=== PATIENT | male | born 1950 | race Caucasian/White ===

== ENCOUNTER 2020-07-31 22:42 | Emergency (ER) | payer BC ==
[2020-07-31 22:47] VITALS: BP 184/104; PULSE 80; RESP 16; TEMP 98.6
--- NOTE | 2020-07-31 23:08 | ED ---
ENT HPI - General Chief complaint: ENT Stated complaint: ENT Time Seen by Provider: 07/31/20 22:49 Source: patient, family, RN notes reviewed, old records reviewed Mode of arrival: ambulatory Limitations: no limitations - History of Present Illness Initial comments: This is a 69-year-old male DF for evaluation. Patient complains of bilateral ear pain and drainage. Also using Q-tips and having blood clot of left ear. Patient has otherwise no significant complaints. Has history of chronic ear wax and drainage. He does use Q-tips daily. No other complaints no change in hearing MD complaint: ear pain (Bilateral ear pain and fullness) -: year(s) Location: R ear, L ear Severity: mild Severity scale (1-10): 2 Consistency: constant Improves with: none Worsens with: none Context- Ear: direct trauma (Q-tip) Associated Symptoms: discharge from ear - Related Data Allergies Allergy/AdvReac Type Severity Reaction Status Date / Time No Known Allergies Allergy Verified 07/31/20 22:47 Review of Systems ROS Statement: Those systems with pertinent positive or pertinent negative responses have been documented in the HPI. ROS Other: All systems not noted in ROS Statement are negative. Past Medical History Past Medical History: No Reported History History of Any Multi-Drug Resistant Organisms: None Reported Past Surgical History: No Surgical Hx Reported Past Psychological History: No Psychological Hx Reported Smoking Status: Former smoker Past Alcohol Use History: None Reported Past Drug Use History: None Reported General Exam - General Exam Comments Initial Comments: Bilateral cerumen impaction Limitations: no limitations General appearance: alert, in no apparent distress Head exam: Present: atraumatic, normocephalic, normal inspection Eye exam: Present: normal appearance, PERRL, EOMI. Absent: scleral icterus, co njunctival injection, periorbital swelling ENT exam: Present: normal exam, mucous membranes moist Neck exam: Present: normal inspection. Absent: tenderness, meningismus, lymphadenopathy Respiratory exam: Present: normal lung sounds bilaterally. Absent: respiratory distress, wheezes, rales, rhonchi, stridor Cardiovascular Exam: Present: regular rate, normal rhythm, normal heart sounds. Absent: systolic murmur, diastolic murmur, rubs, gallop, clicks GI/Abdominal exam: Present: soft, normal bowel sounds. Absent: distended, tenderness, guarding, rebound, rigid Extremities exam: Present: normal inspection, full ROM, normal capillary refill. Absent: tenderness, pedal edema, joint swelling, calf tenderness Back exam: Present: normal inspection Neurological exam: Present: alert, oriented X3, CN II-XII intact Psychiatric exam: Present: normal affect, normal mood Skin exam: Present: warm, dry, intact, normal color. Absent: rash Course Vital Signs 07/31/20 22:43 Temperature 98.6 F Pulse Rate 80 Respiratory 16 Rate Blood Pressure 184/104 O2 Sat by Pulse 98 Oximetry - Reevaluation(s) Reevaluation #1: 08/01/20 00:25 Medical record is reviewed Reevaluation #2: 08/01/20 00:25 Patient has complete relief after ears are flushed Medical Decision Making - Medical Decision Making 69 male to the ER for evaluation bilateral cerumen impaction resolved and pa tient can be discharged Disposition Clinical Impression: Impacted cerumen of both ears Disposition: HOME SELF-CARE Condition: Good Instructions (If sedation given, give patient instructions): Cerumen Impaction (ED), Earache (ED) Is patient prescribed a controlled substance at d/c from ED?: No Referrals: Saniya Ruth MD [Primary Care Provider] - 1-2 days
[2020-07-31] MEDS ORDERED: AMOXIC-POT CLAV 875MG STARTER PACK 2 TAB BTL PO STA (23:28)
[2020-07-31] MEDS ORDERED: CARBAMIDE PEROXIDE 6.5% DROPS 15 ML BTL BOTH EARS STA (23:28)
[2020-07-31] MEDS ORDERED: AMOXIC-POT CLAV 875-125MG 1 EACH TAB PO STA (23:28)
== END 2020-08-01 00:23 | disposition home or self-care (01) ==
LOC: EC 22:42
DX: H61.23 Impacted cerumen, bilateral (principal); Z87.891 Personal history of nicotine dependence
CPT/HCPCS: 99283

== ENCOUNTER → 2022-08-01 | Outpatient (CLI) | payer MEDICARE ==
--- NOTE | 2022-08-01 16:46 | XR ---
EXAMINATION TYPE: XR ankle complete LT DATE OF EXAM: 08/01/2022 COMPARISON: None HISTORY: Gout TECHNIQUE: 3 view left ankle FINDINGS: Ankle mortise is intact. Soft tissues are normal. Calcaneal Achilles tendon heel spurs pres ent. No acute fractures are evident. Joint spaces otherwise are unremarkable. Follow up exams can be perfo rmed 710 days from acute trauma for continued pain. IMPRESSION: 1. No acute osseous abnormality left ankle. 2. Achilles tendon calcaneal heel spur
== END | disposition home or self-care (01) ==
LOC: RADXRYALE 16:27
PROVIDERS: ATTEND Internal Medicine
DX: M10.072 Idiopathic gout, left ankle and foot (principal); M77.32 Calcaneal spur, left foot

== ENCOUNTER 2022-11-20 18:17 | Inpatient (IN) | payer MEDICARE ==
[2022-11-20 19:35] LABS: Basophils % (A) 0 %; Eosinophils # (A) 0.3 k/uL (0-0.7); Eosinophils % (A) 3 %; HCT 47.3 % (39.0-53.0); HGB 15.8 gm/dL (13.0-17.5); Lymphocytes % (A) 12 %; MCH 31.1 pg (25.0-35.0); MCHC 33.3 g/dL (31.0-37.0); MCV 93.4 fL (80.0-100.0); Mean Platelet Volume 8.3; Monocytes # (A) 0.6 k/uL (0-1.0); Monocytes % (A) 7 %; Neutrophils # (A) 6.5 k/uL (1.3-7.7); Neutrophils % (A) 76 %; Platelet Count 206 k/uL (150-450); RBC 5.06 m/uL (4.30-5.90); RDW 13.2 % (11.5-15.5); WBC 8.6 k/uL (3.8-10.6)
[2022-11-20 19:44] LABS: INR 0.9 (<1.2); Partial Thromboplastin Time 23.5 sec (22.0-30.0); Prothrombin Time 9.7 sec (9.0-12.0)
[2022-11-20 19:54] LABS: Albumin 4.1 g/dL (3.5-5.0); Calcium 8.9 mg/dL (8.4-10.2); Potassium 4.8 mmol/L (3.5-5.1); Total Bilirubin 0.4 mg/dL (0.2-1.3); Total Protein 7.3 g/dL (6.3-8.2)
--- NOTE | 2022-11-20 20:32 | ED ---
SOB HPI - General Chief Complaint: Shortness of Breath Stated Complaint: SOB Source: patient, RN notes reviewed, old records reviewed Mode of arrival: wheelchair Limitations: no limitations - History of Present Illness Initial Comments: This is a 72-year-old male DF for evaluation of medical history takes no medications. Patient has been feeling fine until he went to his room a little bit prior to arrival today. Patient is no shortness of breath [place] he back is without he cannot catch his breath was taking some deep breath without help. No sweatiness no chest pain no current symptoms. Again patient has no medical history aside from remote history of smoking which he stopped 30 years ago no high blood pressure or cholesterol no diabetes, brother does have history of he art disease but is a chronic smoker. Again at this time patient states he feels well mild runny nose mild cough which is fell he can catch his breath prior to arrival MD Complaint: shortness of breath, cough, anxiety -: minutes(s) Severity: moderate Severity scale (1-10): 5 Consistency: intermittent Improves With: nothing Worsens With: other (0) Known History Of: other (0) Context: recent URI Associated Symptoms: denies other symptoms Treatments Prior to Arrival: none - Related Data Home Medications Medication Instructions Recorded Confirmed No Known Home Medications 11/20/22 11/20/22 Allergies Allergy/AdvReac Type Severity Reaction Status Date / Time No Known Allergies Allergy Verified 11/20/22 21:07 Review of Systems ROS Statement: Those systems with pertinent positive or pertinent negative responses have been documented in the HPI. ROS Other: All systems not noted in ROS Statement are negative. Past Medical History Past Medical History: No Reported History History of Any Multi-Drug Resistant Organisms: None Reported Past Surgical History: No Surgical Hx Reported Past Psychological History: No Psychological Hx Reported Smoking Status: Former smoker Past Alcohol Use History: None Reported Past Drug Use History: None Reported General Exam Limitations: no limitations General appearance: alert, in no apparent distress Head exam: Present: atraumatic, normocephalic, normal inspection Eye exam: Present: normal appearance, PERRL, EOMI. Absent: scleral icterus, conjunctival injection, periorbital swelling ENT exam: Present: normal exam, mucous membranes moist Neck exam: Present: normal inspection. Absent: tenderness, meningismus, lymphadenopathy Respiratory exam: Present: normal lung sounds bilaterally. Absent: respiratory distress, wheezes, rales, rhonchi, stridor Cardiovascular Exam: Present: regular rate, normal rhythm, normal heart sounds. Absent: systolic murmur, diastolic murmur, rubs, gallop, clicks GI/Abdominal exam: Present: soft, normal bowel sounds. Absent: distended, tenderness, guarding, rebound, rigid Extremities exam: Present: normal inspection, full ROM, normal capillary refill. Absent: tenderness, pedal edema, joint swelling, calf tenderness Back exam: Present: normal inspection Neurological exam: Present: alert, oriented X3, CN II-XII intact Psychiatric exam: Present: normal affect, normal mood Skin exam: Present: warm, dry, intact, normal color. Absent: rash Course Vital Signs 11/20/22 11/20/22 18:53 20:34 Temperature 98.2 F Pulse Rate 100 89 Respiratory 24 18 Rate Blood Pressure 136/84 141/91 O2 Sat by Pulse 90 L 94 L Oximetry - Reevaluation(s) Reevaluation #1: 11/20/22 21:31 Medical records reviewed Reevaluation #2: 11/20/22 21:32 patient does not develop chest pain here in the ER Reevaluation #3: 11/20/22 21:32 Patient informed results and questions are answered Reevaluation #4: 11/20/22 21:32 Was pt. sent in by a medical professional or institution? @ -no Did you speak to anyone other than the patient for history? @ -no Did you review nursing and triage notes? @ -agree Were old charts reviewed? @ -no Differential Diagnosis? @ -chest pain EKG interpreted by me (3pts min.)? @ -yes X-rays interpreted by me (1pt min.)? @ -yes CT interpreted by me (1pt min.)? @ -no U/S interpreted by me (1pt. min.)? @ -no What testing was considered but not performed? (CT, X-rays, U/S, labs)? Why? @ no What meds were considered but not given? Why? @ -no Did you discuss the management of the patient with other professionals? @ -no Did you reconcile home meds? @ -yes Was smoking cessation discussed for >3mins.? @ -no Was critical care preformed (if so, how long)? @ -yes 31 Were there social determinants of health that impacted care today? How? (Homelessness, low income, unemployed, alcoholism, drug addiction, transportation, low edu. Level, literacy, decrease access to med. care, skilled nursing, rehab)? @ -no Was there de-escalation of care discussed even if they declined? (Discuss DNR or withdrawal of care, Hospice)? @ -no What co-morbidities impacted this encounter? (DM, HTN, Smoking, COPD, CAD, Canc er, CVA, Hep., AIDS, mental health diagnosis, sleep apnea, morbid obesity)? @ -no Was patient admitted / discharged? @ -admit Undiagnosed new problem with uncertain prognosis? @ -no Drug Therapy requiring intensive monitoring for toxicity (Heparin, Nitro, Insulin, Cardizem)? @ -yes Were any procedures done? @ -no Diagnosis/symptom? @ -NSTEMI Acute, or Chronic, or Acute on Chronic? @ -no Uncomplicated (without systemic symptoms) or Complicated (systemic symptoms)? @ -no Side effects of treatment? @ -no Exacerbation, Progression, or Severe Exacerbation] @ -no Poses a threat to life or bodily function? @ -yes Medical Decision Making - Medical Decision Making 72 male to the emergency department for evaluation of an episode shortness of breath will going into his room today. Patient does have elevated troponin here in the ER no EKG changes 2 EKGs here in the ER, no episodes or chest pain or last day or 2. Patient is no diaphoresis or anything aside from symptoms or shortness of breath prior to arrival. Patient states he had a runny nose throughout the day maybe was worse tonight. No current chest pain and no current shortness of breath feels well [place] for trending of troponin cardiology to see - Lab Data Result diagrams: 11/20/22 19:27 11/20/22 19:27 Lab Results 11/20/22 11/20/22 11/20/22 Range/Units 18:57 19:27 19:27 WBC 8.6 (3.8-10.6) k/uL RBC 5.06 (4.30-5.90) m/uL Hgb 15.8 (13.0-17.5) gm/dL Hct 47.3 (39.0-53.0) % MCV 93.4 (80.0-100.0) fL MCH 31.1 (25.0-35.0) pg MCHC 33.3 (31.0-37.0) g/dL RDW 13.2 (11.5-15.5) % Plt Count 206 (150-450) k/uL MPV 8.3 Neutrophils % 76 % Lymphocytes % 12 % Monocytes % 7 % Eosinophils % 3 % Basophils % 0 % Neutrophils # 6.5 (1.3-7.7) k/uL Lymphocytes # 1.0 (1.0-4.8) k/uL Monocytes # 0.6 (0-1.0) k/uL Eosinophils # 0.3 (0-0.7) k/uL Basophils # 0.0 (0-0.2) k/uL PT 9.7 (9.0-12.0) sec INR 0.9 (<1.2) APTT 23.5 (22.0-30.0) sec Sodium (137-145) mmol/L Potassium (3.5-5.1) mmol/L Chloride (98-107) mmol/L Carbon Dioxide (22-30) mmol/L Anion Gap mmol/L BUN (9-20) mg/dL Creatinine (0.66-1.25) mg/dL Est GFR (CKD-EPI)AfAm (>60 ml/min/1.73 sqM) Est GFR (CKD-EPI)NonAf (>60 ml/min/1.73 sqM) Glucose (74-99) mg/dL Calcium (8.4-10.2) mg/dL Total Bilirubin (0.2-1.3) mg/dL AST (17-59) U/L ALT (4-49) U/L Alkaline Phosphatase (38-126) U/L Troponin I (0.000-0.034) ng/mL Total Protein (6.3-8.2) g/dL Albumin (3.5-5.0) g/dL Influenza Type A (PCR) Not Detected (Not Detectd) Influenza Type B (PCR) Not Detected (Not Detectd) RSV (PCR) Not Detected (Not Detectd) SARS-CoV-2 (PCR) Not Detected (Not Detectd) 11/20/22 11/20/22 Range/Units 19:27 19:27 WBC (3.8-10.6) k/uL RBC (4.30-5.90) m/uL Hgb (13.0-17.5) gm/dL Hct (39.0-53.0) % MCV (80.0-100.0) fL MCH (25.0-35.0) pg MCHC (31.0-37.0) g/dL RDW (11.5-15.5) % Plt Count (150-450) k/uL MPV Neutrophils % % Lymphocytes % % Monocytes % % Eosinophils % % Basophils % % Neutrophils # (1.3-7.7) k/uL Lymphocytes # (1.0-4.8) k/uL Monocytes # (0-1.0) k/uL Eosinophils # (0-0.7) k/uL Basophils # (0-0.2) k/uL PT (9.0-12.0) sec INR (<1.2) APTT (22.0-30.0) sec Sodium 141 (137-145) mmol/L Potassium 4.8 (3.5-5.1) mmol/L Chloride 108 H (98-107) mmol/L Carbon Dioxide 26 (22-30) mmol/L Anion Gap 7 mmol/L BUN 22 H (9-20) mg/dL Creatinine 1.24 (0.66-1.25) mg/dL Est GFR (CKD-EPI)AfAm 67 (>60 ml/min/1.73 sqM) Est GFR (CKD-EPI)NonAf 58 (>60 ml/min/1.73 sqM) Glucose 146 H (74-99) mg/dL Calcium 8.9 (8.4-10.2) mg/dL Total Bilirubin 0.4 (0.2-1.3) mg/dL AST 35 (17-59) U/L ALT 37 (4-49) U/L Alkaline Phosphatase 95 (38-126) U/L Troponin I 0.191 H* (0.000-0.034) ng/mL Total Protein 7.3 (6.3-8.2) g/dL Albumin 4.1 (3.5-5.0) g/dL Influenza Type A (PCR) (Not Detectd) Influenza Type B (PCR) (Not Detectd) RSV (PCR) (Not Detectd) SARS-CoV-2 (PCR) (Not Detectd) - EKG Data -: EKG Interpreted by Me (EKG is sinus 93 ME 175 QRS 113 QTC 426) - Radiology Data Radiology results: report reviewed (Chest x-rays negative for acute disease), image reviewed Critical Care Time Critical Care Time: Yes Total Critical Care Time: 31 Disposition Clinical Impression: Acute coronary syndrome, NSTEMI (non-ST elevated myocardial infarction) Disposition: ADMITTED IP TO THIS [facility] Condition: Serious Is patient prescribed a controlled substance at d/c from ED?: No Referrals: Mai Lopez DO [Primary Care Provider] - 1-2 days Time of Disposition: 21:30
[2022-11-20] MEDS ORDERED: NITROGLYCERIN SL TABS 0.4 MG TAB SUBLINGUAL PRN (21:28)
[2022-11-20] MEDS ORDERED: HEPARIN SODIUM 1,000 UN/ML (10ML VL) IV ONE (21:28)
[2022-11-20] MEDS ORDERED: ASPIRIN 81 MG PO STA (21:28)
[2022-11-20] MEDS ORDERED: HEPARIN SOD,PORK IN 0.45% NACL 25,000 UNIT in 0.45% NACL 1 250ML.BAG IV SCH (21:30)
--- NOTE | 2022-11-20 21:37 | XR ---
EXAMINATION TYPE: XR chest 1V portable DATE OF EXAM: 11/20/2022 9:26 PM COMPARISON: Chest radiographs from 11/20/2022 TECHNIQUE: XR chest 1V portable Frontal view of the chest. CLINICAL INDICATION:Male, 72 years old with history of sob; FINDINGS: Lungs/Pleura: There is no evidence of pleural effusion, focal consolidation, or pneumothorax. Pulmonary vascularity: Unremarkable. Heart/mediastinum: Cardiomediastinal silhouette is unremarkable. Musculoskeletal: Degenerative changes of the shoulder joints. IMPRESSION: Increased interstitial lung markings without acute cardiopulmonary disease/process.
[2022-11-21] MEDS: SODIUM CHLORIDE 0.9% 1,000 ML IV SCH ×5 (03:54→18:30)
--- NOTE | 2022-11-21 04:02 | P.HPIM ---
History of Present Illness H&P Date: 11/20/22 Chief Complaint: shortness of breath 72 year old male with history of Gout patient coming in for shortness of breath, he was at his baseline status of health up until today, when suddenly became short of breath after using the bathroom he got up and felt dizzy and could not breath. he was not getting better and decided to come in for evaluation . he denies any GI bleeding , denies any constipation or straining , denies any cardiac history denies smoking, drugs or alcohol . denies any trauma to the chest , any recent travel or hospital stay. he also reports symptoms of sore throat and cough for the past day or two. no fever, no chills. no congestion denies any leg swelling, orthopnea or pnds. patient does not take any medications Review of Systems Pertinent positives as noted in HPI. All other systems were reviewed and are ne gative Past Medical History Past Medical History: No Reported History History of Any Multi-Drug Resistant Organisms: None Reported Past Surgical History: No Surgical Hx Reported Past Psychological History: No Psychological Hx Reported Smoking Status: Former smoker Past Alcohol Use History: None Reported Past Drug Use History: None Reported Medications and Allergies Home Medications Medication Instructions Recorded Confirmed Type No Known Home Medications 11/20/22 11/20/22 History Allergies Allergy/AdvReac Type Severity Reaction Status Date / Time No Known Allergies Allergy Verified 11/20/22 21:07 Physical Exam Vitals: Vital Signs Temp Pulse Resp BP Pulse Ox 11/21/22 02:53 82 18 160/91 93 L 11/21/22 01:32 85 18 144/90 92 L 11/20/22 20:34 89 18 141/91 94 L 11/20/22 18:53 98.2 F 100 24 136/84 90 L Intake and Output 11/20/22 11/20/22 11/21/22 14:59 22:59 06:59 Other: Weight 94.347 kg Constitutional: No acute distress, conversant, pleasant Eyes: Anicteric sclerae, moist conjunctiva, Pupils equal round reactive to light ENMT: NC/AT Oropharynx clear, no erythema, or exudates Neck: Supple, no masses, or JVD No carotid bruits No thyromegaly Lungs: Clear to auscultation Clear to percussion Normal respiratory effort, no accessory muscle use Cardiovascular: Heart regular in rate and rhythm, No murmurs, gallops, or rubs No peripheral edema Abdominal: Soft Nontender, no guarding, rebound or rigidity Abdomen moving with respiration Normoactive bowel sounds No hepatomegaly, No splenomegaly No palpable mass No abdominal wall hernia noted Skin: Normal temperature, tone, texture, turgor No induration No subcutaneous nodules No rash, lesions No ulcers Extremities: No digital cyanosis No clubbing Pedal pulses intact and symmetrical Radial pulses intact and symmetrical No calf tenderness Psychiatric: Alert and oriented to person, place and time Appropriate affect fair judgement Neuro Muscles Strength 5/5 in all 4 extremities Sensation to light touch grossly present throughout Cranial nerves II-XII grossly intact Lymphatics: no palpable cervical or supraclavicular lymph nodes Results CBC & Chem 7: 11/20/22 19:27 11/20/22 19:27 Labs: Abnormal Lab Results - Last 24 Hours (Table) 11/20/22 11/20/22 11/20/22 Range/Units 19:27 19:27 19:27 D-Dimer 13.17 H (<0.60) mg/L FEU Chloride 108 H (98-107) mmol/L BUN 22 H (9-20) mg/dL Glucose 146 H (74-99) mg/dL Troponin I 0.191 H* (0.000-0.034) ng/mL 11/20/22 Range/Units 22:22 D-Dimer (<0.60) mg/L FEU Chloride (98-107) mmol/L BUN (9-20) mg/dL Glucose (74-99) mg/dL Troponin I 0.400 H* (0.000-0.034) ng/mL Assessment and Plan Assessment: 72 year old male with GOut, coming in for sudden onset shortness of breath , I discussed the case with ED doc, and I accepted the admission for cardiac workup due to elevated trops and d dimer with anticipated length of stay > 2 midnights shortness of breath elevated tropnonin , rule out ACS elevated d dimer , rule out PE acute hypoxic respiratory failure upon presentation with oxygen saturation of 90% supplemental oxygen as needed heparin gtt dosing by pharmacy check CT angio of the chest rule out PE trend troponins , currently denies any chest pain patient was started on aspirin 325 mg po daily , atorvastatin 40 mg po qhs , and metoprolol 25 mg po bid cardiology consult alarm security or surveillance monitor monitor vital signs EKG no acute ST changes CXR no acute pathology acute viral respiratory panel , negative full code DVT PPX on heparin gtt for ACS
--- NOTE | 2022-11-21 05:16 | CT ---
EXAMINATION TYPE: CT chest angio for PE DATE OF EXAM: 11/21/2022 COMPARISON: NONE HISTORY: Shortness of breath and elevated d-dimer CT DLP: 443.5 mGycm. Automated Exposure Control for Dose Reduction was Utilized. CONTRAST: CTA scan of the thorax is performed with IV Contrast, patient injected with 80 mL of Isovue 370, pulm onary embolism protocol. MIP Images are created on CT scanner and reviewed. FINDINGS: LUNGS: The lungs are grossly clear, there is no concerning parenchymal mass or nodule identified. T here is no pleural effusion or pneumothorax seen. The tracheobronchial tree is patent. MEDIASTINUM: There are bilateral pulmonary emboli. One thrombus extends to ranging point of the main pulmonary artery into right and left pulmonary arteries. There is significant thrombi centrally in th e bilateral lungs. Right ventricle is dilated. No cardiomegaly or pericardial effusion. There are no greater than 1 cm mediastinal lymph nodes. OTHER: There is 5.6 cm rounded low-density lesion in the left upper abdomen suspected of left adrenal origin which is nonspecific. Bridging osteophytes in the thoracic spine raise concern for DISH. IMPRESSION: 1. Significant bilateral pulmonary emboli with CT evidence for RV strain. Critical results communicated to emergency room via telephone at time of dictation. A Document Only message has been documented for Candice Surinder in the [employer] system on 11/21/2022 5:14 AM, Message ID [id number].
[2022-11-21] MEDS ORDERED: HEPARIN SODIUM 1,000 UN/ML (10ML VL) IV PRN (05:34)
[2022-11-21] MEDS: HEPARIN SOD,PORK IN 0.45% NACL 25,000 UNIT in 0.45% NACL 1 250ML.BAG IV SCH ×5 (05:47→22:04)
--- NOTE | 2022-11-21 08:37 | P.CNPUL ---
History of Present Illness Consult date: 11/21/22 Requesting physician: Candice Cadena Reason for consult: pulmonary embolism Chief complaint: Shortness of breath and dizziness History of present illness: I'm seeing this patient today 11/21/2022 in new consultation for saddle pulmonary embolism in emergency room 1. This is a 72-year-old white male with no significant past medical history. He does have gout. Patient denies any personal or family history of blood clots, clotting disorders, malignancies. No recent prolonged travel, trauma or surgery. He is an ex-smoker with a 28-30-dcon-year history. Patient reports that early yesterday morning he was ambulating within his home and began to feel short of breath and dizzy. He denies any chest pain, syncope, hemoptysis. Patient's d-dimer on arrival was 13. A follow-up chest CTA demonstrated a large central saddle pulmonary embolism extending into bilateral right and left pulmonary arteries. There was evidence of right heart strain with a severely dilated right ventricle and shifted intraventricular septum. Troponins are elevated, with most recent level being 0.352. Patient is currently on high intensity heparin infusion with a therapeutic APTT. Clinically, he is doing quite well while at rest. He is on 4 L nasal cannula, oxygenating at 98%, in no acute distress. No significant impacts on blood pressure or heart rate. Clinically stable at this time. ECG showed no evidence of acute ischemia. Patient's remaining workup was fairly benign. Patient's CBC was within normal limits. BMP shows some sodium of 141, potassium 4.8, chloride 108, serum CO2 26, BUN 22, creatinine 1.24, glucose 146. LFTs were not elevated. Patient was negative for influenza, RSV, COVID-19. Patient will be transferred to the intensive care unit. Echocardiogram is pending. Patient will likely be a candidate for EKOS. Cardiology has been contacted. Review of Systems REVIEW OF SYSTEMS: CONSTITUTIONAL: Denies any recent significant weight loss or weight gain. EYES: Denies change in vision. EARS, NOSE, MOUTH, THROAT: Denies headaches, denies sore throat. CARDIOVASCULAR: Denies chest pain, palpitations or syncopal episodes. RESPIRATORY: Denies cough, congestion or hemoptysis. Admits exertional shortness of breath and lightheadedness GASTROINTESTINAL: Denies change in appetite, abdominal pain, nausea and vomiting, or diarrhea GENITOURINARY: Denies hematuria, denies infections. MUSKULOSKELETAL: Denies pain, denies swelling. INTEGUMENTARY: Denies rash, denies eczema. NEUROLOGICAL: Denies recent memory loss, no recent seizure activity. PSYCHIATRIC: Denies anxiety, denies depression. HEMATOLOGIC/LYMPHATIC: Denies anemia, denies enlarged lymph node Past Medical History Past Medical History: No Reported History History of Any Multi-Drug Resistant Organisms: None Reported Past Surgical History: No Surgical Hx Reported Past Psychological History: No Psychological Hx Reported Smoking Status: Former smoker Past Alcohol Use History: None Reported Past Drug Use History: None Reported Medications and Allergies Home Medications Medication Instructions Recorded Confirmed Type No Known Home Medications 11/20/22 11/20/22 History Allergies Allergy/AdvReac Type Severity Reaction Status Date / Time No Known Allergies Allergy Verified 11/20/22 21:07 Physical Exam Vitals: Vital Signs Temp Pulse Resp BP Pulse Ox 11/21/22 07:00 80 20 140/84 98 11/21/22 06:51 80 16 140/84 98 11/21/22 05:38 78 18 145/90 99 11/21/22 02:53 82 18 160/91 93 L 11/21/22 01:32 85 18 144/90 92 L 11/20/22 20:34 89 18 141/91 94 L 11/20/22 18:53 98.2 F 100 24 136/84 90 L Intake and Output 11/20/22 11/21/22 11/21/22 22:59 06:59 14:59 Other: Weight 94.347 kg GENERAL EXAM: Alert, 72-year-old white male, comfortable in no apparent distress. HEAD: Normocephalic and atraumatic EYES: Normal reaction of pupils, equal size. NOSE: Clear with pink turbinates. THROAT: No erythema or exudates. NECK: No masses, no JVD. CHEST: No chest wall deformity. LUNGS: Equal air entry with no crackles, wheeze, rhonchi or dullness. On 4 L nasal cannula. No conversational dyspnea or accessory muscle use.. CVS: S1 and S2 normal with no audible murmur, regular rhythm. No extra heart sounds ABDOMEN: No hepatosplenomegaly, active bowel sounds, no guarding or rigidity. SPINE: No scoliosis or deformity SKIN: No rashes CENTRAL NERVOUS SYSTEM: No focal deficits, tone is normal in all 4 extremities. EXTREMITIES: There is no peripheral edema, clubbing, or cyanosis. Peripheral pulses are intact. Results - Laboratory Findings CBC and BMP: 11/20/22 19:27 11/20/22 19:27 PT/INR, D-dimer PT 9.7 sec (9.0-12.0) 11/20/22 19: INR 0.9 (<1.2) 11/20/22 19:27 D-Dimer 13.17 mg/L FEU (<0.60) H 11/20/22 19:27 Abnormal lab findings: Abnormal Labs 11/20/22 11/20/22 11/20/22 19:27 19:27 19:27 APTT D-Dimer 13.17 H Chloride 108 H BUN 22 H Glucose 146 H Troponin I 0.191 H* 11/20/22 11/21/22 11/21/22 22:22 02:47 04:47 APTT 50.2 H D-Dimer Chloride BUN Glucose Troponin I 0.400 H* 0.352 H* - Diagnostic Findings Chest x-ray: image reviewed CT scan - chest: image reviewed Assessment and Plan Assessment: Large central saddle pulmonary embolism with evidence of right heart strain on chest CTA. Troponins are also elevated. Patient is likely a candidate for EKOS. Echocardiogram is pending Acute hypoxic respiratory failure secondary to above. Currently on 4 L nasal cannula. Gout Ex-smoker, 40-60 pack-year history Plan: Patient's medications, labs, chest x-ray, chest CT were reviewed Echocardiogram is pending Potential candidate for EKOS Cardiology was alerted Continue high-intensity heparin per protocol Bilateral lower extremity Doppler Normal saline infusing at 75 mL per hour Continue supplemental oxygen to maintain oxygen saturation of 92% or greater Patient will be transferred to the intensive care unit Prognosis guarded We will continue to follow I have personally seen and examined the patient, performed the documentation and the assessment and plan as written. Number of minutes spent on the visit:20 Time with Patient: Greater than 30
[2022-11-21] MEDS ORDERED: ASPIRIN 325 MG TAB PO SCH (09:00)
[2022-11-21] MEDS ORDERED: ATORVASTATIN 80 MG TAB PO SCH (09:00)
[2022-11-21] MEDS ORDERED: METOPROLOL TARTRATE 25 MG TAB PO SCH (09:00)
--- NOTE | 2022-11-21 09:25 | US ---
EXAMINATION TYPE: US venous doppler duplex LE DATE OF EXAM: 11/21/2022 9:11 AM COMPARISON: NONE CLINICAL HISTORY: R/O DVT. SOB, PE. Newly diagnosed pulmonary emboli. SIDE PERFORMED: bilateral TECHNIQUE: The lower extremity deep venous system is examined utilizing real time linear array sonog nathan with graded compression, doppler sonography and color-flow sonography. VESSELS IMAGED: Common Femoral Vein Deep Femoral Vein Greater Saphenous Vein * Femoral Vein Popliteal Vein Small Saphenous Vein * Proximal Calf Veins (* superficial vessels) Grayscale, color doppler, spectral doppler imaging performed of the deep veins of the bilateral lower extremities. There is normal flow, compressibility, vascular waveforms. Right Leg: No evidence of DVT Left Leg: +Positive for DVT left popliteal vein Hyperechoic material is expanding the lumen in the left popliteal vein with absent color flow and no compression. IMPRESSION: Acute DVT in the left lower extremity is present at the level of the popliteal vein.
--- NOTE | 2022-11-21 09:33 | CONS ---
CONSULTATION CHIEF COMPLAINT: Shortness of breath. HISTORY OF PRESENT ILLNESS: Jose Juan is a 72-year-old gentleman with no significant past medical history who presented to [facility] with sudden onset shortness of breath. The patient developed sudden-onset shortness of breath associated with dizziness and chest tightness. He felt tired and unable to get around. He came to the emergency room where he was hypoxic with an O2 saturation of 92%. EKG showed sinus rhythm with nonspecific ST-T wave changes. Lab showed that the troponins were elevated at 0.1, 0.[address] scan of the chest showed significant bilateral pulmonary embolism with evidence of RV strain and dilated right ventricle. At the time of my evaluation, patient appears comfortable at rest, O2 saturation is 98% on 4 L. There is no tachycardia and patient is hemodynamically stable. The patient is currently on IV heparin. We will switch him to Eliquis or Xarelto and he is a candidate for EKOS and he will undergo the same later today by my associate, Dr. Nevarez. PAST MEDICAL HISTORY: Negative for hypertension, diabetes, dyslipidemia. MEDICATIONS: None. ALLERGIES: None. FAMILY HISTORY: Negative for premature coronary artery disease. There is no history of thromboembolic disease in the family. REVIEW OF SYSTEMS: A review of systems has been performed, pertinences are as documented. PHYSICAL EXAMINATION: VITAL SIGNS: Heart rate is 80 beats per minute, blood pressure is 140/82, respiratory rate is 20, and O2 saturation is 98% on 4 L. NECK: There is no jugular venous distention. Carotid upstroke is normal. There is no bruit. CHEST: Reveals good air entry bilaterally. HEART: Reveals first and second heart sounds. No gallop, no murmur. ABDOMEN: Soft, nontender. EXTREMITIES: Did not reveal any edema. Peripheral pulses are felt. LABORATORY DATA: Labs show that the potassium is 4.8, creatinine is 1.2, hemoglobin is 15.8. ASSESSMENT AND PLAN: Acute large pulmonary embolism with evidence of RV strain, elevated troponin. PLAN: Patient will continue the IV heparin and will consult Interventional Cardiology for EKOS. MMODL / IJN: [id number] /
[2022-11-21 10:39] LABS: Chol/HDL Ratio 5.11 Ratio; LDL Cholesterol,Calculated 151.3 mg/dL (0.0-131.0)
--- NOTE | 2022-11-21 10:50 | CA ---
Transthoracic Echo Report Name: Jose Juan Sewell Age: 72 Gender: M : 1950 Exam Date: 11/21/2022 07:43 Exam Location: [place] [facility] Ht (in): 72 Wt (lb): 208 Ordering Physician: Lizbeth Cordova MD ([id number]) Attending/Referring Phys: Oil Heat Technician Hina White RDCS Procedure CPT: Indications: Saddle PE, Heart Strain Cardiac Hx: Technical Quality: Fair Contrast 1: Total Dose (mL): Contrast 2: Total Dose (mL): MEASUREMENTS (Male / Female) Normal Values 2D ECHO LV Diastolic Diameter PLAX 4.6 cm 4.2 - 5.9 / 3.9 - 5.3 cm LV Systolic Diameter PLAX 3.3 cm IVS Diastolic Thickness 1.1 cm 0.6 - 1.0 / 0.6 - 0.9 cm LVPW Diastolic Thickness 1.2 cm 0.6 - 1.0 / 0.6 - 0.9 cm LV Relative Wall Thickness 0.5 RV Internal Dim ED PLAX 3.5 cm LA Systolic Diameter LX 3.1 cm 3.0 - 4.0 / 2.7 - 3.8 cm LA Volume 23.7 cm??? 18 - 58 / 22 - 52 cm??? M-MODE Aortic Root Diameter MM 3.2 cm MV E Point Septal Separation 2.1 cm AV Cusp Separation MM 2.1 cm DOPPLER AV Peak Velocity 107.7 cm/s AV Peak Gradient 4.6 mmHg MV Area PHT 2.6 cm??? Mitral E Point Velocity 71.2 cm/s Mitral A Point Velocity 95.4 cm/s Mitral E to A Ratio 0.7 MV Deceleration Time 288.9 ms MV E' Velocity 9.5 cm/s Mitral E to MV E' Ratio 7.5 TR Peak Velocity 329.4 cm/s TR Peak Gradient 43.4 mmHg Right Ventricular Systolic Press 48.3 mmHg FINDINGS Left Ventricle Left ventricular ejection fraction is estimated at 55-60 %. Left ventricular cavity size normal. Mildly increased septal wall thickness. Right Ventricle Mild right ventricular dilatation. Moderate pulmonary hypertension. Right Atrium Normal right atrial size. Left Atrium Normal left atrial size. Mitral Valve Structurally normal mitral valve. Aortic Valve Trileaflet aortic valve. No aortic valve stenosis or regurgitation. Tricuspid Valve Structurally normal tricuspid valve. Mild tricuspid regurgitation. Pulmonic Valve Pulmonic valve not well visualized. Pericardium Normal pericardium. No pericardial effusion. Aorta Normal size aortic root and proximal ascending aorta. CONCLUSIONS Normal LV size and systolic function. Right ventricle is mildly enlarged. There is mild to moderate pulmonary hypertension. No flattening of interventricular septum. No pericardial effusion. There is mild mitral and [id number] tricuspid regurgitation. Overall this is a suboptimal echo with poor visualization of endocardial margins Previewed by: Dr. Ekaterina Tamez MD (Electronically Signed) Final Date: 21 November 2022 10:49
--- NOTE | 2022-11-21 11:19 | P.PN ---
Subjective Progress Note Date: 11/21/22 Hospital Course: 72-year-old male with no significant past medical history presenting for sudden onset shortness of breath and presyncope. On presentation, CBC was unremarkable, BMP showed elevated BUN, creatinine 1.4, troponin elevated to 0.4. CTA showed significant bilateral PE with evidence of RV strain. Patient to be admitted to medical ICU, may need further interventions. He is currently on nasal cannula. Subjective: Seen and examined at bedside. No acute events overnight. Continues to have some shortness of breath, but denies any palpitations, lightheadedness, chest pain, nausea, vomiting, diarrhea, constipation, or urinary complaints. Pertinent positives and negatives as discussed above, a complete review of systems was performed and all other systems are negative. Vitals Signs Reviewed. General: nontoxic, no distress, appears at stated age Derm: warm, dry Head: atraumatic, normocephalic, symmetric Eyes: EOMI, no lid lag, anicteric sclera Mouth: no lip lesion, mucus membranes moist Cardiovascular: S1S2 reg, no murmur Lungs: CTA bilateral, no rhonchi, no rales , no accessory muscle use, supplemental oxygen Abdominal: soft, nontender to palpation, no guarding, no appreciable organomegaly Ext: no gross muscle atrophy, no edema, no contractures Neuro: CN II-XI grossly intact, no focal neuro deficits Psych: Alert, oriented, appropriate affect Data Reviewed Today: Pertinent Labs: Troponin peaked at 2.4, total cholesterol 2:15, LDL 151 Echocardiogram report reviewed, shows normal LV size and systolic function, RV is mildly enlarged, mild to moderate pulmonary hypertension, no flattening of interventricular septum, no pericardial effusion, some optimal echo with poor visualization endocardial margins Operative report reviewed, and an acute DVT in left lower extremity at the level of popliteal vein. Assessment and Plan: Patient is critically ill, to be admitted to medical ICU. Active: Acute submassive PE, saddle, evidence of right heart strain on CTA Acute hypoxic respiratory failure Type II NSTEMI Acute left leg DVT Gout Former smoker -Pulmonology note reviewed, patient likely a candidate for EKOS -Cardiology note reviewed, interventional radiology to perform EKOS -Currently hemodynamically stable, still requiring 4 L nasal cannula -Started on heparin drip, monitor for signs of bleeding and APTT, CBC daily -Elevated troponin in the setting of RV strain from submassive PE -Patient will likely need age-appropriate cancer screening as outpatient, last colonoscopy was normal 15 years ago DVT ppx: On heparin drip Code status: Full code Anticipated discharge place: Pending clinical course Anticipated discharge time: Pending clinical course Objective - Vital Signs Vital signs: Vital Signs Temp 98.2 F 11/20/22 18:53 Pulse 80 11/21/22 07:00 Resp 20 11/21/22 07:00 BP 140/84 11/21/22 07:00 Pulse Ox 98 11/21/22 07:00 FiO2 Intake & Output 11/20/22 11/21/22 11/21/22 18:59 06:59 18:59 Intake Total 86.042 Balance 86.042 Weight 94.347 kg Intake: Intake, IV Titration 86.042 Amount Heparin Sod,Pork in 0.45% 86.042 NaCl 25,000 unit In 0.45 % NaCl 1 250ml.bag @ 18 UNITS/KG/HR 16.982 mls/hr IV .[id number] [facility] Rx#: [id number] - Labs CBC & Chem 7: 11/20/22 19:27 11/20/22 19:27 Labs: Abnormal Lab Results - Last 24 Hours (Table) 11/20/22 11/20/22 11/20/22 Range/Units 19:27 19:27 19:27 APTT (22.0-30.0) sec D-Dimer 13.17 H (<0.60) mg/L FEU Chloride 108 H (98-107) mmol/L BUN 22 H (9-20) mg/dL Glucose 146 H (74-99) mg/dL Troponin I 0.191 H* (0.000-0.034) ng/mL Cholesterol (0.00-200.00) mg/dL LDL Cholesterol, Calc (0.0-131.0) mg/dL 11/20/22 11/21/22 11/21/22 Range/Units 22:22 02:47 04:47 APTT 50.2 H (22.0-30.0) sec D-Dimer (<0.60) mg/L FEU Chloride (98-107) mmol/L BUN (9-20) mg/dL Glucose (74-99) mg/dL Troponin I 0.400 H* 0.352 H* (0.000-0.034) ng/mL Cholesterol (0.00-200.00) mg/dL LDL Cholesterol, Calc (0.0-131.0) mg/dL 11/21/22 11/21/22 Range/Units 04:47 09:44 APTT 100.7 H* (22.0-30.0) sec D-Dimer (<0.60) mg/L FEU Chloride (98-107) mmol/L BUN (9-20) mg/dL Glucose (74-99) mg/dL Troponin I (0.000-0.034) ng/mL Cholesterol 215.00 H (0.00-200.00) mg/dL LDL Cholesterol, Calc 151.3 H (0.0-131.0) mg/dL
[2022-11-21] MEDS ORDERED: ALTEPLASE 6 MG in SODIUM CHLORIDE 0.9% 144 ML IV ONE ×5 (11:20→13:00)
[2022-11-21] MEDS ORDERED: HEPARIN SOD,PORK IN 0.45% NACL 25,000 UNIT in 0.45% NACL 1 250ML.BAG IV SCH (11:30)
[2022-11-21] MEDS ORDERED: SODIUM CHLORIDE 0.9% 1,000 ML IV SCH ×4 (11:30→13:00)
[2022-11-21 12:02] LABS: Basophils % (A) 0 %; Eosinophils # (A) 0.3 k/uL (0-0.7); Eosinophils % (A) 4 %; HCT 46.3 % (39.0-53.0); HGB 15.6 gm/dL (13.0-17.5); Lymphocytes # (A) 1.3 k/uL (1.0-4.8); Lymphocytes % (A) 15 %; MCHC 33.7 g/dL (31.0-37.0); Mean Platelet Volume 8.9; Monocytes # (A) 0.5 k/uL (0-1.0); Monocytes % (A) 6 %; Neutrophils # (A) 6.6 k/uL (1.3-7.7); Neutrophils % (A) 74 %; Platelet Count 220 k/uL (150-450); RBC 5.03 m/uL (4.30-5.90); RDW 13.6 % (11.5-15.5); WBC 8.9 k/uL (3.8-10.6)
[2022-11-21 12:07] LABS: Calcium 8.7 mg/dL (8.4-10.2); Potassium 4.4 mmol/L (3.5-5.1)
[2022-11-21] MEDS ORDERED: LIDOCAINE 1% INJ 10MG/ML (20 ML MDV) ONE (13:16)
[2022-11-21] MEDS ORDERED: LIDOCAINE 1% INJ 10MG/ML (30 ML VIAL-PF) SQ ONE (13:21)
[2022-11-21] MEDS ORDERED: fentaNYL (PF) 50 MCG/ML 2 ML AMP ONE (13:22)
[2022-11-21] MEDS ORDERED: MIDAZOLAM 2 MG/2 ML VIAL IV ONE (13:24)
[2022-11-21] MEDS ORDERED: fentaNYL (PF) 50 MCG/ML 2 ML AMP IV ONE (13:24)
[2022-11-21] MEDS ORDERED: IV FLUID CONTINUATION 1,000 ML IV ONE (13:29)
[2022-11-21] MEDS ORDERED: ALTEPLASE 2 MG VIAL (CATHFLO) MISCELLANE ONE ×2 (13:45)
[2022-11-21 14:28] LABS: Glucose,Whole Blood 125 mg/dL (70-110)
--- NOTE | 2022-11-21 19:16 | P.PCN ---
Description of Procedure: PROCEDURES PERFORMED: Bilateral EKOS+ catheter placement and intraarterial TPA administration INDICATION: Submassive bilateral PE with right heart strain PROCEDURE: After the risks, benefits and alternatives of the above mentioned procedure explained in detail with the patient, informed consent was obtained. Patient was taken to the catheterization lab and prepped and draped in usual fashion. 1% lidocaine was used to anesthetize the right femoral area. 2 x 8- Greek sheath were placed in the right femoral artery using modified Seldinger technique and ultrasound guidance. Next using a 5-Greek FR4 catheter and a 0.035 glide advantage the FR4 catheter was advanced into the right and then left middle segmental pulmonary artery. The catheter was then exchanged for the EKOS catheter which was then advanced into the right and then a second EKOS catheter was advanced into the left pulmonary artery. The EKOS device was advanced through the catheter and secured in place bilaterally. 2 mg TPA was administered through the catheter into the right and left pulmonary artery respectively. The patient tolerated the procedure well. Patient was transported back to the post catheterization holding area in stable condition. Conscious Sedation: Patient was monitored under the direct supervision of vision of myself for conscious sedation using Versed and fentanyl for a total duration of 21 minutes FINAL IMPRESSION: 1. Submassive bilateral PE status post bilateral EKOS+ catheter placement. PLAN: 1. Aggressive risk factor modification per most recent ACC/AHA guidelines. 2. Catheter directed TPA x 3 hrs and EKOS treatment.
[2022-11-22 04:55] LABS: Basophils % (A) 0 %; Eosinophils # (A) 0.4 k/uL (0-0.7); Eosinophils % (A) 4 %; HCT 39.2 % (39.0-53.0); HGB 13.1 gm/dL (13.0-17.5); Lymphocytes # (A) 1.5 k/uL (1.0-4.8); Lymphocytes % (A) 17 %; MCH 30.8 pg (25.0-35.0); MCHC 33.3 g/dL (31.0-37.0); MCV 92.3 fL (80.0-100.0); Mean Platelet Volume 8.2; Monocytes # (A) 0.6 k/uL (0-1.0); Monocytes % (A) 7 %; Neutrophils # (A) 5.9 k/uL (1.3-7.7); Neutrophils % (A) 70 %; Platelet Count 179 k/uL (150-450); RBC 4.25 m/uL (4.30-5.90); RDW 13.3 % (11.5-15.5); WBC 8.5 k/uL (3.8-10.6)
[2022-11-22 05:51] LABS: Calcium 7.9 mg/dL (8.4-10.2); Potassium 4.1 mmol/L (3.5-5.1)
[2022-11-22] MEDS: SODIUM CHLORIDE 0.9% 1,000 ML IV SCH ×5 (06:27→16:55)
--- NOTE | 2022-11-22 10:07 | P.PN ---
Subjective Progress Note Date: 11/22/22 Hospital Course: 72-year-old male with no significant past medical history presenting for sudden onset shortness of breath and presyncope. On presentation, CBC was unremarkable, BMP showed elevated BUN, creatinine 1.4, troponin elevated to 0.4. CTA showed significant bilateral PE with evidence of RV strain. Patient was admitted to the medical ICU. Echocardiogram shows normal LV size and systolic function, RV is mildly enlarged, mild to moderate pulmonary hypertension, no flattening of interventricular septum, no pericardial effusion, some optimal echo with poor visualization endocardial margins. Lower extremity Doppler shows an acute DVT in left lower extremity at the level of popliteal vein. He is now status post EKOS. Now on room air. Subjective: Seen and examined at bedside. No acute events overnight. His shortness of breath and chest pain is completely resolved. He denies any palpitations, lightheadedness, chest pain, nausea, vomiting, diarrhea, constipation, or urinary complaints. Pertinent positives and negatives as discussed above, a complete review of systems was performed and all other systems are negative. Vitals Signs Reviewed. General: nontoxic, no distress, appears at stated age Derm: warm, dry Head: atraumatic, normocephalic, symmetric Eyes: EOMI, no lid lag, anicteric sclera Mouth: no lip lesion, mucus membranes moist Cardiovascular: S1S2 reg, no murmur Lungs: CTA bilateral, no rhonchi, no rales , no accessory muscle use Abdominal: soft, nontender to palpation, no guarding, no appreciable organomegaly Ext: no gross muscle atrophy, no edema, no contractures Neuro: CN II-XI grossly intact, no focal neuro deficits Psych: Alert, oriented, appropriate affect Data Reviewed Today: Pertinent Labs: Hemoglobin 13.1, sodium 141, potassium 4.1, creatinine 1.7, APTT 63.3 Assessment and Plan: Active: Acute submassive PE, saddle, evidence of right heart strain on CTA, status post EKOS Acute hypoxic respiratory failure, resolved Type II NSTEMI Acute left leg DVT Gout Former smoker -Patient maintained on heparin drip, continue to monitor for signs of bleeding and APTT, CBC daily -We'll likely need to switch to oral anticoagulation tomorrow -Cardiology and pulmonology following -Patient will likely need age-appropriate cancer screening as outpatient, last colonoscopy was normal 15 years ago DVT ppx: On heparin drip Code status: Full code Anticipated discharge place: Pending clinical course Anticipated discharge time: Pending clinical course Objective - Vital Signs Vital signs: Vital Signs Temp 97.6 F 11/22/22 08:18 Pulse 72 11/22/22 10:00 Resp 0 L 11/22/22 10:00 BP 150/86 11/22/22 10:00 Pulse Ox 94 L 11/22/22 10:00 FiO2 Intake & Output 11/21/22 11/22/22 11/22/22 18:59 06:59 18:59 Intake Total 700.012 900 805 Output Total 0 1300 Balance 700.012 -400 805 Weight 94.347 kg 98.9 kg Intake: IV 540 900 225 0.9 300 900 225 0.9 EKOS 140 Intake, IV Titration 160.012 0 Amount Heparin Sod,Pork in 0.45% 160.012 0 NaCl 25,000 unit In 0.45 % NaCl 1 250ml.bag @ 18 UNITS/KG/HR 16.982 mls/hr IV .[id number] [facility] Rx#: [id number] Oral 580 Output: Urine 0 1300 Other: Voiding Method Urinal Urinal Urinal # Voids 1 - Labs CBC & Chem 7: 11/22/22 04:14 11/22/22 04:14 Labs: Abnormal Lab Results - Last 24 Hours (Table) 11/21/22 11/21/22 11/21/22 Range/Units 04:47 09:44 09:44 RBC (4.30-5.90) m/uL APTT 100.7 H* (22.0-30.0) sec Fibrinogen 518 H (200-500) mg/dL Chloride (98-107) mmol/L Creatinine (0.66-1.25) mg/dL Glucose (74-99) mg/dL POC Glucose (mg/dL) (70-110) mg/dL Calcium (8.4-10.2) mg/dL Cholesterol 215.00 H (0.00-200.00) mg/dL LDL Cholesterol, Calc 151.3 H (0.0-131.0) mg/dL 11/21/22 11/21/22 11/21/22 Range/Units 09:44 14:26 15:29 RBC (4.30-5.90) m/uL APTT 186.1 H* (22.0-30.0) sec Fibrinogen (200-500) mg/dL Chloride (98-107) mmol/L Creatinine 1.30 H (0.66-1.25) mg/dL Glucose 129 H (74-99) mg/dL POC Glucose (mg/dL) 125 H (70-110) mg/dL Calcium (8.4-10.2) mg/dL Cholesterol (0.00-200.00) mg/dL LDL Cholesterol, Calc (0.0-131.0) mg/dL 11/22/22 11/22/22 11/22/22 Range/Units 04:14 04:14 04:14 RBC 4.25 L (4.30-5.90) m/uL APTT 63.3 H (22.0-30.0) sec Fibrinogen (200-500) mg/dL Chloride 109 H (98-107) mmol/L Creatinine (0.66-1.25) mg/dL Glucose (74-99) mg/dL POC Glucose (mg/dL) (70-110) mg/dL Calcium 7.9 L (8.4-10.2) mg/dL Cholesterol (0.00-200.00) mg/dL LDL Cholesterol, Calc (0.0-131.0) mg/dL
[2022-11-22] MEDS: PANTOPRAZOLE 40 MG TABLET PO SCH (10:47)
--- NOTE | 2022-11-22 12:40 | P.PN ---
Subjective Progress Note Date: 11/22/22 Principal diagnosis: Acute pulmonary embolism I'm seeing this patient today 11/21/2022 in new consultation for saddle pulmonary embolism in emergency room 1. This is a 72-year-old white male with no significant past medical history. He does have gout. Patient denies any personal or family history of blood clots, clotting disorders, malignancies. No recent prolonged travel, trauma or surgery. He is an ex-smoker with a 18-41-lnpx-year history. Patient reports that early yesterday morning he was ambulating within his home and began to feel short of breath and dizzy. He denies any chest pain, syncope, hemoptysis. Patient's d-dimer on arrival was 13. A follow-up chest CTA demonstrated a large central saddle pulmonary embolism extending into bilateral right and left pulmonary arteries. There was evidence of right heart strain with a severely dilated right ventricle and shifted intraventricular septum. Troponins are elevated, with most recent level being 0.352. Patient is currently on high intensity heparin infusion with a therapeutic APTT. Clinically, he is doing quite well while at rest. He is on 4 L nasal cannula, oxygenating at 98%, in no acute distress. No significant impacts on blood pressure or heart rate. Clinically stable at this time. ECG sh owed no evidence of acute ischemia. Patient's remaining workup was fairly benign. Patient's CBC was within normal limits. BMP shows some sodium of 141, potassium 4.8, chloride 108, serum CO2 26, BUN 22, creatinine 1.24, glucose 146. LFTs were not elevated. Patient was negative for influenza, RSV, COVID-19. Patient will be transferred to the intensive care unit. Echocardiogram is pending. Patient will likely be a candidate for EKOS. Cardiology has been contacted. Reevaluated today on 11/22/2022, patient remains in the ICU, he is status post ekos thrombolysis by cardiology, doing well, remains on heparin drip, and the plan is to transition to [facility] tomorrow and discharge the patient home tomorrow. No major issues at this point. Patient does not seem to be in any distress, he remains hemodynamically stable. He is actually on room air and I plan to transfer the patient to [facility]. CBC is basically unremarkable, PTT is therapeutic, Electrolytesenc normal renal profile is normal creatinine improved since yesterday. Objective - Vital Signs Vital signs: Vital Signs Temp 97.8 F 11/22/22 12:00 Pulse 80 11/22/22 12:00 Resp 9 L 11/22/22 12:00 BP 138/80 11/22/22 12:00 Pulse Ox 95 11/22/22 12:00 FiO2 Intake & Output 11/21/22 11/22/22 11/22/22 18:59 06:59 18:59 Intake Total 700.012 900 805 Output Total 0 1300 Balance 700.012 -400 805 Weight 94.347 kg 98.9 kg Intake: IV 540 900 225 0.9 300 900 225 0.9 EKOS 140 Intake, IV Titration 160.012 0 Amount Heparin Sod,Pork in 0.45% 160.012 0 NaCl 25,000 unit In 0.45 % NaCl 1 250ml.bag @ 18 UNITS/KG/HR 16.982 mls/hr IV .[id number] [facility] Rx#: [id number] Oral 580 Output: Urine 0 1300 Other: Voiding Method Urinal Urinal Urinal # Voids 1 - Exam Physical Exam revealed 72-year-old white male in no distress Head: Atraumatic, normocephalic. HEENT:[Neck is supple.] [No neck masses.] [No thyromegaly.] [No JVD.] Chest: [Clear throughout, no crackles, no rhonchi, no wheezes.] Cardiac Exam: [Normal S1 and S2, no S3 gallop, no murmur.] Abdomen: [Soft, nontender, no megaly, no rebound, no guarding, normal bowel sounds.] Extremities: [No clubbing, no edema, no cyanosis.] Neurological Exam: [No focal neurologic deficit.] Alert oriented 3. Psychiatric: Normal mood affect and normal mental status exam. Skin: No rashes. - Labs CBC & Chem 7: 11/22/22 04:14 11/22/22 04:14 Labs: Abnormal Lab Results - Last 24 Hours (Table) 11/21/22 11/21/22 11/21/22 Range/Units 09:44 14:26 15:29 RBC (4.30-5.90) m/uL APTT 186.1 H* (22.0-30.0) sec Fibrinogen 518 H (200-500) mg/dL Chloride (98-107) mmol/L POC Glucose (mg/dL) 125 H (70-110) mg/dL Calcium (8.4-10.2) mg/dL 11/22/22 11/22/22 11/22/22 Range/Units 04:14 04:14 04:14 RBC 4.25 L (4.30-5.90) m/uL APTT 63.3 H (22.0-30.0) sec Fibrinogen (200-500) mg/dL Chloride 109 H (98-107) mmol/L POC Glucose (mg/dL) (70-110) mg/dL Calcium 7.9 L (8.4-10.2) mg/dL Assessment and Plan Assessment: Impression: Acute pulmonary embolism, patient presented with large central saddle pulmonary embolism with RV strain. 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 We'll continue to follow Time with Patient: Less than 30
[2022-11-22] MEDS: HEPARIN SOD,PORK IN 0.45% NACL 25,000 UNIT in 0.45% NACL 1 250ML.BAG IV SCH ×2 (16:25→16:55)
--- NOTE | 2022-11-22 20:45 | PN ---
PROGRESS NOTE SUBJECTIVE: Jose Juan is a 72-year-old gentleman, who is admitted to hospital with acute large bilateral pulmonary embolism. Currently on IV heparin and he underwent EKOS procedure yesterday. This morning, he is doing well and is free of symptoms. An echocardiogram revealed normal LV systolic function with moderate pulmonary hypertension with an RVSP of 48 mm. OBJECTIVE: GENERAL: The patient is comfortable at rest. VITAL SIGNS: Stable. CHEST: Reveals good air entry bilaterally. HEART: Reveals first and second heart sounds. No gallop. No murmur. ABDOMEN: Soft. EXTREMITIES: Did not reveal any edema. Peripheral pulses are felt. LABORATORY DATA: Labs show a hemoglobin of 15.1, platelet count is 179, potassium is 4.1, creatinine is 1.1. LDL cholesterol is elevated at 150. ASSESSMENT: Acute large pulmonary embolism with evidence of RV strain. PLAN: I am going to continue heparin for another day and convert him to Eliquis tomorrow. We will address the elevated cholesterol as outpatient. Transfer the patient out of ICU. JOSEPH / RAMONN: [id number] /
[2022-11-23] MEDS: PANTOPRAZOLE 40 MG TABLET PO SCH (06:03)
[2022-11-23] MEDS: SODIUM CHLORIDE 0.9% 1,000 ML IV SCH ×2 (07:14→07:19)
[2022-11-23] MEDS: HEPARIN SOD,PORK IN 0.45% NACL 25,000 UNIT in 0.45% NACL 1 250ML.BAG IV SCH (07:14)
[2022-11-23] MEDS: APIXABAN 5 MG TAB PO SCH ×2 (09:23→20:01)
--- NOTE | 2022-11-23 11:39 | CDI ---
Documentation Clarification Form Date: 11/23/2022 11:22:44 AM From: Florecita Brantley RN, CCDS Email: [email or web address] Admit Date: 11/20/2022 9:35:00 PM Patient Name: Jose Juan Sewell Visit Number: [id number] Discharge Date: ATTENTION: The Clinical Documentation Specialists (CDI) and [facility] Coding Staff appreciate your assistance in clarifying documentation. Please respond to the clarification below the line at the bottom and electronically sign. The CDI & [facility] Coding staff will review the response and follow-up if needed. Please note: Queries are made part of the Legal Health Record. If you have any questions, please contact the author of this message via ITS. Dr. Ravi Jimenez Your patient has submassive bilateral PE with right heart strain. Based on this information and the findings below, is there an additional diagnosis that is clinically appropriate for this patient? Patient history/risk factors: no medical history with remote history of smoking. Came in with shortness of breath. Clinical Indicators: H&P: "CTA results back positive for bilateral PE, into the main pulmonary artery left and right, with CT evidence of RV strain." 11/21 CT chest angio: Significant bilateral pulmonary emboli with CT evidence for RV strain. Cardiology: "Acute large pulmonary embolism with evidence of RV strain, elevated troponin." Venous doppler: +DVT pop vein left leg Treatment: Bilateral EKOS+ catheter placement and intra-arterial TPA administration for submassive BL PE with right heart strain. IV Heparin. Is there an additional diagnosis that is clinically appropriate for this patient? [ x ] Acute cor pulmonale due to BL saddle pulmonary embolism [ ] No additional diagnosis/Not clinically significant [ ] Unable to determine [ ] Other, please specify MTDD
--- NOTE | 2022-11-23 13:35 | P.PN ---
Subjective Progress Note Date: 11/23/22 HISTORY OF PRESENT ILLNESS: This is a 52-year-old male who is admitted to the hospital secondary to submassive bilateral PE with right heart strain. Patient underwent EKOS procedure on 11/21/[address] Nevarez. Patient was transferred out of the ICU yesterday. He is examined this morning in the cardiac stepdown unit. Patient is sitting on the side of the bed. He denies any chest pain or pressure. He denies shortness of breath. He remains on IV heparin. Vital signs are stable. PHYSICAL EXAM: VITAL SIGNS: Reviewed. GENERAL: Well-developed in no acute distress. NECK: Supple. No JVD or thyromegaly LUNGS: Respirations even and unlabored. Lungs essentially clear to auscultation bilaterally. HEART: Regular rate and rhythm. S1 and S2 heard. EXTREMITIES: Normal range of motion. No clubbing or cyanosis. Peripheral pulses intact. No lower extremity edema ASSESSMENT: Submassive bilateral pulmonary embolism with right heart strain, s/p EKOS procedure on 11/21/2022 Former nicotine dependence PLAN: Discontinue IV heparin Begin oral anticoagulation with Eliquis Continue to monitor patient for an additional 24 hours. Anticipate discharge home tomorrow Further recommendations pending patient's course Nurse practitioner note has been reviewed by physician. Signing provider agrees with the documented findings, assessment, and plan of care. Objective - Vital Signs Vital signs: Vital Signs Temp 98.4 F 11/23/22 07:17 Pulse 78 11/23/22 13:12 Resp 16 11/23/22 11:19 BP 129/69 11/23/22 11:19 Pulse Ox 97 11/23/22 11:19 FiO2 Intake & Output 11/22/22 11/23/22 11/23/22 18:59 06:59 18:59 Intake Total 1216.195 373.787 Balance 1216.195 373.787 Weight 96.3 kg Intake: IV 225 0.9 225 Intake, IV Titration 231.195 193.787 Amount Heparin Sod,Pork in 0.45% 231.195 193.787 NaCl 25,000 unit In 0.45 % NaCl 1 250ml.bag @ 18 UNITS/KG/HR 16.982 mls/hr IV .[id number] [facility] Rx#: [id number] Oral 760 180 Other: Voiding Method Toilet Toilet Toilet Urinal # Voids 1 3 1 - Labs CBC & Chem 7: 11/22/22 04:14 11/22/22 04:14 Labs: Abnormal Lab Results - Last 24 Hours (Table) 11/23/22 Range/Units 07:32 APTT 193.1 H* (22.0-30.0) sec
--- NOTE | 2022-11-23 14:36 | P.PN ---
Subjective Progress Note Date: 11/23/22 Principal diagnosis: Acute pulmonary embolism I'm seeing this patient today 11/21/2022 in new consultation for saddle pulmonary embolism in emergency room 1. This is a 72-year-old white male with no significant past medical history. He does have gout. Patient denies any personal or family history of blood clots, clotting disorders, malignancies. No recent prolonged travel, trauma or surgery. He is an ex-smoker with a 60-24-krgb-year history. Patient reports that early yesterday morning he was ambulating within his home and began to feel short of breath and dizzy. He denies any chest pain, syncope, hemoptysis. Patient's d-dimer on arrival was 13. A follow-up chest CTA demonstrated a large central saddle pulmonary embolism extending into bilateral right and left pulmonary arteries. There was evidence of right heart strain with a severely dilated right ventricle and shifted intraventricular septum. Troponins are elevated, with most recent level being 0.352. Patient is currently on high intensity heparin infusion with a therapeutic APTT. Clinically, he is doing quite well while at rest. He is on 4 L nasal cannula, oxygenating at 98%, in no acute distress. No significant impacts on blood pressure or heart rate. Clinically stable at this time. ECG sh owed no evidence of acute ischemia. Patient's remaining workup was fairly benign. Patient's CBC was within normal limits. BMP shows some sodium of 141, potassium 4.8, chloride 108, serum CO2 26, BUN 22, creatinine 1.24, glucose 146. LFTs were not elevated. Patient was negative for influenza, RSV, COVID-19. Patient will be transferred to the intensive care unit. Echocardiogram is pending. Patient will likely be a candidate for EKOS. Cardiology has been contacted. Reevaluated today on 11/22/2022, patient remains in the ICU, he is status post ekos thrombolysis by cardiology, doing well, remains on heparin drip, and the plan is to transition to [facility] tomorrow and discharge the patient home tomorrow. No major issues at this point. Patient does not seem to be in any distress, he remains hemodynamically stable. He is actually on room air and I plan to transfer the patient to [facility]. CBC is basically unremarkable, PTT is therapeutic, Electrolytesenc normal renal profile is normal creatinine improved since yesterday. Reevaluated today on 11/23/2022, patient is doing great, asymptomatic, he is now on room air with O2 saturations 97%, he was already transition to [facility], I will clear the patient to go home if cleared by other consultants, patient was made aware that he should stay on anticoagulation therapy lifetime. Labs today are basically unremarkable except the PTT seems to be supratherapeutic. Objective - Vital Signs Vital signs: Vital Signs Temp 98.4 F 11/23/22 07:17 Pulse 78 11/23/22 13:12 Resp 16 11/23/22 11:19 BP 129/69 11/23/22 11:19 Pulse Ox 97 11/23/22 11:19 FiO2 Intake & Output 11/22/22 11/23/22 11/23/22 18:59 06:59 18:59 Intake Total 1216.195 553.787 Balance 1216.195 553.787 Weight 96.3 kg Intake: IV 225 0.9 225 Intake, IV Titration 231.195 193.787 Amount Heparin Sod,Pork in 0.45% 231.195 193.787 NaCl 25,000 unit In 0.45 % NaCl 1 250ml.bag @ 18 UNITS/KG/HR 16.982 mls/hr IV .[id number] [facility] Rx#: [id number] Oral 760 360 Other: Voiding Method Toilet Toilet Toilet Urinal # Voids 1 3 1 - Exam Physical Exam revealed 72-year-old white male in no distress on room air. Head: Atraumatic, normocephalic. HEENT:[Neck is supple.] [No neck masses.] [No thyromegaly.] [No JVD.] Chest: [Clear throughout, no crackles, no rhonchi, no wheezes.] Cardiac Exam: [Normal S1 and S2, no S3 gallop, no murmur.] Abdomen: [Soft, nontender, no megaly, no rebound, no guarding, normal bowel sounds.] Extremities: [No clubbing, no edema, no cyanosis.] Neurological Exam: [No focal neurologic deficit.] Alert oriented 3. Psychiatric: Normal mood affect and normal mental status exam. Skin: No rashes. - Labs CBC & Chem 7: 11/22/22 04:14 11/22/22 04:14 Labs: Abnormal Lab Results - Last 24 Hours (Table) 11/23/22 Range/Units 07:32 APTT 193.1 H* (22.0-30.0) sec Assessment and Plan Assessment: Impression: Acute pulmonary embolism, patient presented with large central saddle pulmonary embolism with RV strain. 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
--- NOTE | 2022-11-23 16:38 | P.PN ---
Subjective Progress Note Date: 11/23/22 "72-year-old male with no significant past medical history presenting for sudden onset shortness of breath and presyncope. On presentation, CBC was unremarkable, BMP showed elevated BUN, creatinine 1.4, troponin elevated to 0.4. CTA showed significant bilateral PE with evidence of RV strain. Patient was admitted to the medical ICU. Echocardiogram shows normal LV size and systolic function, RV is mildly enlarged, mild to moderate pulmonary hypertension, no flattening of interventricular septum, no pericardial effusion, some optimal echo with poor visualization endocardial margins. Lower extremity Doppler shows an acute DVT in left lower extremity at the level of popliteal vein. He is now status post EKOS. Now on room air. " No new systemic symptoms but continues to have significant generalized weakness and shortness of breath on exertion Currently on oral anticoagulation Objective - Vital Signs Vital signs: Vital Signs Temp 97.5 F L 11/23/22 15:46 Pulse 76 11/23/22 15:46 Resp 16 11/23/22 15:46 BP 137/81 11/23/22 15:46 Pulse Ox 97 11/23/22 15:46 FiO2 Intake & Output 11/22/22 11/23/22 11/23/22 18:59 06:59 18:59 Intake Total 1216.195 553.787 Balance 1216.195 553.787 Weight 96.3 kg Intake: IV 225 0.9 225 Intake, IV Titration 231.195 193.787 Amount Heparin Sod,Pork in 0.45% 231.195 193.787 NaCl 25,000 unit In 0.45 % NaCl 1 250ml.bag @ 18 UNITS/KG/HR 16.982 mls/hr IV .[id number] [facility] Rx#: [id number] Oral 760 360 Other: Voiding Method Toilet Toilet Toilet Urinal # Voids 1 3 2 - Exam General: nontoxic, no distress, appears at stated age Derm: warm, dry Head: atraumatic, normocephalic, symmetric Eyes: EOMI, no lid lag, anicteric sclera Mouth: no lip lesion, mucus membranes moist Cardiovascular: S1S2 reg, no murmur Lungs: CTA bilateral, no rhonchi, no rales , no accessory muscle use Abdominal: soft, nontender to palpation, no guarding, no appreciable organomegaly Ext: no gross muscle atrophy, no edema, no contractures Neuro: CN II-XI grossly intact, no focal neuro deficits Psych: Alert, oriented, appropriate affect - Labs CBC & Chem 7: 11/22/22 04:14 11/22/22 04:14 Labs: Abnormal Lab Results - Last 24 Hours (Table) 11/23/22 Range/Units 07:32 APTT 193.1 H* (22.0-30.0) sec Assessment and Plan Assessment: Assessment and Plan: Active: Acute submassive PE, saddle, evidence of right heart strain on CTA, status post EKOS Acute hypoxic respiratory failure, resolved Type II NSTEMI Acute left leg DVT Gout Former smoker -Patient maintained on heparin drip, continue to monitor for signs of bleeding and APTT, CBC daily -We'll likely need to switch to oral anticoagulation tomorrow -Cardiology and pulmonology following -Patient will likely need age-appropriate cancer screening as outpatient, last colonoscopy was normal 15 years ago DVT ppx: Off heparin drip on po Eliquis Code status: Full code Anticipated discharge place: Pending clinical course Anticipated discharge time: Pending clinical course
[2022-11-24] MEDS: PANTOPRAZOLE 40 MG TABLET PO SCH (06:23)
[2022-11-24 08:28] LABS: Basophils % (A) 0 %; Eosinophils # (A) 0.4 k/uL (0-0.7); Eosinophils % (A) 5 %; HCT 44.5 % (39.0-53.0); HGB 14.9 gm/dL (13.0-17.5); Lymphocytes # (A) 1.2 k/uL (1.0-4.8); Lymphocytes % (A) 15 %; MCHC 33.5 g/dL (31.0-37.0); MCV 92.4 fL (80.0-100.0); Mean Platelet Volume 8.5; Monocytes # (A) 0.5 k/uL (0-1.0); Monocytes % (A) 6 %; Neutrophils % (A) 73 %; Platelet Count 233 k/uL (150-450); RBC 4.81 m/uL (4.30-5.90); RDW 13.1 % (11.5-15.5); WBC 8.2 k/uL (3.8-10.6)
[2022-11-24 08:43] LABS: Albumin 4.2 g/dL (3.5-5.0); Calcium 9.2 mg/dL (8.4-10.2); Potassium 4.2 mmol/L (3.5-5.1); Total Bilirubin 0.8 mg/dL (0.2-1.3); Total Protein 7.3 g/dL (6.3-8.2)
[2022-11-24 08:55] VITALS: BP 138/76; PULSE 90; RESP 22; TEMP 98
[2022-11-24] MEDS: APIXABAN 5 MG TAB PO SCH (08:58)
--- NOTE | 2022-11-24 10:01 | P.PN ---
Subjective Progress Note Date: 11/24/22 HISTORY OF PRESENT ILLNESS: This is a 52-year-old male who is admitted to the hospital secondary to submassive bilateral PE with right heart strain. Patient underwent EKOS procedure on 11/21/[address] Nevarez. Patient was transferred out of the ICU yesterday. He is examined this morning in the cardiac stepdown unit. Patient is sitting on the side of the bed. He denies any chest pain or pressure. He denies shortness of breath. He remains on IV heparin. Vital signs are stable. 11/24/2022 Patient examined this morning. He is sitting up in the chair. Patient denies c hest pain or pressure. He denies shortness of breath. Patient states he slept very well last night and is hoping to be discharged home this morning. PHYSICAL EXAM: VITAL SIGNS: Reviewed. GENERAL: Well-developed in no acute distress. NECK: Supple. No JVD or thyromegaly LUNGS: Respirations even and unlabored. Lungs essentially clear to auscultation bilaterally. HEART: Regular rate and rhythm. S1 and S2 heard. EXTREMITIES: Normal range of motion. No clubbing or cyanosis. Peripheral pulses intact. No lower extremity edema ASSESSMENT: Submassive bilateral pulmonary embolism with right heart strain, s/p EKOS procedure on 11/21/2022 Former nicotine dependence PLAN: Continue oral anticoagulation with Eliquis Patient is stable for discharge home today Patient to follow-up post discharge Nurse practitioner note has been reviewed by physician. Signing provider agrees with the documented findings, assessment, and plan of care. Objective - Vital Signs Vital signs: Vital Signs Temp 98.0 F 11/24/22 08:00 Pulse 90 11/24/22 08:00 Resp 22 11/24/22 08:00 BP 138/76 11/24/22 08:00 Pulse Ox 96 11/24/22 08:00 FiO2 Intake & Output 11/23/22 11/24/22 11/24/22 18:59 06:59 18:59 Intake Total 733.787 540 Balance 733.787 540 Weight 95.5 kg Intake: Intake, IV Titration 193.787 Amount Heparin Sod,Pork in 0.45% 193.787 NaCl 25,000 unit In 0.45 % NaCl 1 250ml.bag @ 18 UNITS/KG/HR 16.982 mls/hr IV .[id number] [facility] Rx#: [id number] Oral 540 540 Other: Voiding Method Toilet Toilet # Voids 2 - Labs CBC & Chem 7: 11/24/22 07:37 11/24/22 07:37 Labs: Abnormal Lab Results - Last 24 Hours (Table) 11/24/22 Range/Units 07:37 Creatinine 1.36 H (0.66-1.25) mg/dL Glucose 124 H (74-99) mg/dL ALT 57 H (4-49) U/L
--- NOTE | 2022-11-24 10:22 | P.DS ---
Providers Date of admission: 11/20/22 21:35 Expected date of discharge: 11/24/22 Attending physician: Raiv Jimenez MD Consults: 11/20/22 21:28 Consult Physician Routine Consulting Provider: Lizbeth Cordova Consult Reason/Comments: nstemi Do you want consulting provider notified?: Yes 11/21/22 06:17 Consult Physician Stat Consulting Provider: Alexander Bernardo Consult Reason/Comments: ICU, bilateral PE with right heart strain Do you want consulting provider notified?: Already Contacted Primary care physician: Mai Lopez Hospital Course: Discharge Diagnosis: Acute submassive PE, saddle, evidence of right heart strain on CTA, status post EKOS Acute hypoxic respiratory failure Type II NSTEMI Acute left leg DVT Gout Former smoker Hospital Course: 72-year-old male with no significant past medical history presenting for sudden onset shortness of breath and presyncope. On presentation, CBC was unremarkable, BMP showed elevated BUN, creatinine 1.4, troponin elevated to 0.4. CTA showed significant bilateral PE with evidence of RV strain. Patient was admitted to the medical ICU. Echocardiogram shows normal LV size and systolic function, RV is mildly enlarged, mild to moderate pulmonary hypertension, no flattening of interventricular septum, no pericardial effusion, some optimal echo with poor visualization endocardial margins. Lower extremity Doppler shows an acute DVT in left lower extremity at the level of popliteal vein. He is now status post EKOS. Now on room air. Patient to be discharged on Eliquis. Patient seen and examined at bedside. Vital signs reviewed and stable. General: nontoxic, no distress, appears at stated age Derm: warm, dry Head: atraumatic, normocephalic, symmetric Eyes: EOMI, no lid lag, anicteric sclera Mouth: no lip lesion, mucus membranes moist Cardiovascular: S1S2 reg, no murmur Lungs: CTA bilateral, no rhonchi, no rales , no accessory muscle use Abdominal: soft, nontender to palpation, no guarding, no appreciable organomegaly Ext: no gross muscle atrophy, no edema, no contractures Neuro: CN II-XI grossly intact, no focal neuro deficits Psych: Alert, oriented, appropriate affect A total of 33 minutes of time were spent preparing this complex discharge summary. Patient was discharged on 11/24/22 at 9:33. Patient Condition at Discharge: Stable Plan - Discharge Summary Discharge Rx Participant: No New Discharge Prescriptions: New Apixaban [Eliquis Starter Pack (for VTE)] 5 - 10 mg PO DIRECTED 30 Days #1 each Pantoprazole [Protonix] 40 mg PO AC-BRKFST #60 tab Discharge Medication List Apixaban [Eliquis Starter Pack (for VTE)] 5 - 10 mg PO DIRECTED 30 Days #1 each 11/22/22 [Rx] Pantoprazole [Protonix] 40 mg PO AC-BRKFST #60 tab 11/24/22 [Rx] Follow up Appointment(s)/Referral(s): Mai Lopez DO [Primary Care Provider] - 1-2 days (office currently closed on weekend, patient to call during regular office hours to schedule own appointment ) Ruy Armendariz MD [STAFF PHYSICIAN] - 1 Week Patient Instructions/Handouts: Apixaban (By mouth), Pulmonary Embolism (DC), Deep Vein Thrombosis (DC) Activity/Diet/Wound Care/Special Instructions: Please see your PCP as soon as possible. You need your regular cancer screening including colonoscopy. Discharge Disposition: HOME SELF-CARE
== END 2022-11-24 10:36 | disposition home or self-care (01) | DRG 166 ==
LOC: EC 18:17 → 3SCARD 21:35 → 2SICU 11-21 06:14 → 3SCARD 11-22 16:45
PROVIDERS: ADMIT Student in an Organized Health Care Education/Training Program; ATTEND Student in an Organized Health Care Education/Training Program
PROC: 3E05317 Introduction of Other Thrombolytic into Peripheral Artery, Percutaneous Approach (ICD-10-PCS; principal; 2022-11-21 12:35)
PROC: 02FR3Z0 Fragmentation of Left Pulmonary Artery, Percutaneous Approach, Ultrasonic (ICD-10-PCS; principal; 2022-11-21 12:35)
PROC: 02FQ3Z0 Fragmentation of Right Pulmonary Artery, Percutaneous Approach, Ultrasonic (ICD-10-PCS; principal; 2022-11-21 12:35)
DX: I26.02 Saddle embolus of pulmonary artery with acute cor pulmonale (principal); I21.A1 Myocardial infarction type 2; J96.01 Acute respiratory failure with hypoxia; I82.432 Acute embolism and thrombosis of left popliteal vein; F41.9 Anxiety disorder, unspecified; I27.20 Pulmonary hypertension, unspecified; M10.9 Gout, unspecified; Z79.01 Long term (current) use of anticoagulants; Z79.82 Long term (current) use of aspirin; Z79.899 Other long term (current) drug therapy; Z87.891 Personal history of nicotine dependence; Z28.310 Unvaccinated for COVID-19; Z28.21 Immunization not carried out because of patient refusal
CPT/HCPCS: 36415; 37211; 71045; 71275; 80048; 80053; 80061; 84484; 85025; 85379; 85384; 85610; 85730; 87636; 93005; 93306; 93970; 96365; 96366; 99291

== ENCOUNTER 2022-12-07 06:47 | Emergency (ER) | payer MEDICARE ==
--- NOTE | 2022-12-07 07:37 | ED ---
General Adult HPI - General Chief complaint: Extremity Problem,Nontraumatic Stated complaint: Leg Pain Time Seen by Provider: 12/07/22 07:10 Source: patient, RN notes reviewed, old records reviewed Mode of arrival: ambulatory Limitations: no limitations - History of Present Illness Initial comments: This is a 72-year-old male presents emergency Department. Patient states she's had a history of DVT 2 weeks ago and a PE 2 weeks ago. Patient states she's having more leg pain and he was told to come in because they were worried that his clot was getting larger. Patient's been on eliquis has been taking eliquis. Patient denies any difficulty breathing shortness of breath. Patient states he still has a little bit of a cough any worries that he hasn't quite gotten over cold which he had 2 weeks ago. Patient denies any fever chills. Patient denies any chest pain or palpitations. He says legs are not swollen there is no calf tenderness in the pain is more on the right upper thigh laterally. - Related Data Previous Rx's Medication Instructions Recorded Apixaban [Eliquis Starter Pack 5 - 10 mg PO DIRECTED 30 Days 11/22/22 (for VTE)] #1 each Pantoprazole [Protonix] 40 mg PO AC-BRKFST #60 tab 11/24/22 Allergies Allergy/AdvReac Type Severity Reaction Status Date / Time No Known Allergies Allergy Verified 12/07/22 07:14 Review of Systems ROS Statement: Those systems with pertinent positive or pertinent negative responses have been documented in the HPI. ROS Other: All systems not noted in ROS Statement are negative. Past Medical History Past Medical History: No Reported History, Hyperlipidemia Additional Past Medical History / Comment(s): DVT, PE History of Any Multi-Drug Resistant Organisms: None Reported Past Surgical History: No Surgical Hx Reported Past Anesthesia/Blood Transfusion Reactions: No Reported Reaction Past Psychological History: No Psychological Hx Reported Smoking Status: Former smoker Past Alcohol Use History: None Reported Past Drug Use History: None Reported - Past Family History Father Family Medical History: Cancer, COPD Additional Family Medical History / Comment(s): father was heavy smoker Mother Family Medical History: Asthma, Diabetes Mellitus General Exam - General Exam Comments Initial Comments: GENERAL: Patient is well-developed and well-nourished. Patient is nontoxic and well- hydrated and is in no acute distress. ENT: Neck is soft and supple. No significant lymphadenopathy is noted. Oropharynx is clear. Moist mucous membranes. Neck has full range of motion without eliciting any pain. EYES: The sclera were anicteric and conjunctiva were pink and moist. Extraocular movements were intact and pupils were equal round and reactive to light. Eyelids were unremarkable. PULMONARY: Unlabored respirations. Good breath sounds bilaterally. No audible rales rhonchi or wheezing was noted. CARDIOVASCULAR: There is a regular rate and rhythm without any murmurs gallops or rubs. ABDOMEN: Soft and nontender with normal bowel sounds. SKIN: Skin is clear with no lesions or rashes and otherwise unremarkable. NEUROLOGIC: Patient is alert and oriented x3. Cranial nerves II through XII are grossly intact. Motor and sensory are also intact. Normal speech, volume and content. Symmetrical smile. MUSCULOSKELETAL: Normal extremities with adequate strength and full range of motion. No lower ex tremity swelling or edema. No calf tenderness. Patient has no area of tenderness swelling or contusion. LYMPHATICS: No significant lymphadenopathy is noted PSYCHIATRIC: Normal psychiatric evaluation. Limitations: no limitations Course Vital Signs 12/07/22 12/07/22 07:08 09:14 Temperature 98 F 97 F L Pulse Rate 87 77 Respiratory 18 16 Rate Blood Pressure 145/67 118/62 O2 Sat by Pulse 96 96 Oximetry Medical Decision Making - Medical Decision Making Was pt. sent in by a medical professional or institution (, G[facility], [employer], urgent care, hospital, or jail...) When possible be specific @ -No Did you speak to anyone other than the patient for history (EMS, parent, family, police, friend...)? What history was obtained from this source @ -No Did you review nursing and triage notes (agree or disagree)? Why? @ -I reviewed and agree with nursing and triage notes Were old charts reviewed (outside hosp., previous admission, EMS record, old EKG, old radiological studies, urgent care reports/EKG's, jail records)? Report findings @ -No old charts were reviewed Differential Diagnosis (chest pain, altered mental status, abdominal pain women, abdominal pain men, vaginal bleeding, weakness, fever, dyspnea, syncope, headache, dizziness, GI bleed, back pain, seizure, CVA, palpatations, mental health, musculoskeletal)? @ -DVT, cellulitis, musculoskeletal, this is not all inclusive list EKG interpreted by me (3pts min.). @ -As above X-rays interpreted by me (1pt min.). @ -Chest x-rays interpreted by myself I see no acute abnormalities. CT interpreted by me (1pt min.). @ -None done U/S interpreted by me (1pt. min.). @ -Ultrasound of the leg showed no DVT What testing was considered but not performed or refused? (CT, X-rays, U/S, labs)? Why? @ -None What meds were considered but not given or refused? Why? @ -None Did you discuss the management of the patient with other professionals (professionals i.e. , PA, [employer], lab, RT, psych nurse, social research assistant, cloth hauler, teacher, senior grants officer, case management specialist)? Give summary @ -No Was smoking cessation discussed for >3mins.? @ -No Was critical care preformed (if so, how long)? @ -No Were there social determinants of health that impacted care today? How? (Homelessness, low income, unemployed, alcoholism, drug addiction, transportati on, low edu. Level, literacy, decrease access to med. care, prison, rehab)? @ -No Was there de-escalation of care discussed even if they declined (Discuss DNR or withdrawal of care, Hospice)? DNR status @ -No What co-morbidities impacted this encounter? (DM, HTN, Smoking, COPD, CAD, Cancer, CVA, ARF, Chemo, Hep., AIDS, mental health diagnosis, sleep apnea, morbid obesity)? @ -None Was patient admitted / discharged? Hospital course, mention meds given and route, prescriptions, significant lab abnormalities, going to OR and other pertinent info. @ -hospital course Undiagnosed new problem with uncertain prognosis? @ -No Drug Therapy requiring intensive monitoring for toxicity (Heparin, Nitro, Insulin, Cardizem)? @ -No Were any procedures done? @ -No Diagnosis/symptom? @ -URI Acute, or Chronic, or Acute on Chronic? @ -Acute Uncomplicated (without systemic symptoms) or Complicated (systemic symptoms)? @ -Uncomplicated Side effects of treatment? @ -No Exacerbation, Progression, or Severe Exacerbation? @ -No Poses a threat to life or bodily function? How? (Chest pain, [place], [place], pneumonia, PE, COPD, DKA, ARF, appy, cholecystitis, CVA, Diverticulitis, Homicidal, Suicidal, threat to staff... and all critical care pts) @ -No Diagnosis/symptom? @ -Leg pain Acute, or Chronic, or Acute on Chronic? @ -Acute Uncomplicated (without systemic symptoms) or Complicated (systemic symptoms)? @ -Uncomplicated Side effects of treatment? @ -none Exacerbation, Progression, or Severe Exacerbation] @ -no Poses a threat to life or bodily function? @ -no Disposition Clinical Impression: URI (upper respiratory infection), Leg pain Disposition: HOME SELF-CARE Condition: Good Additional Instructions: Patient should return if symptoms are worse or there are any new symptoms Is patient prescribed a controlled substance at d/c from ED?: No Referrals: Mai Lopez DO [Primary Care Provider] - 1-2 days Time of Disposition: 10:05
--- NOTE | 2022-12-07 08:02 | XR ---
EXAMINATION TYPE: XR chest 2V DATE OF EXAM: 12/07/2022 7:55 AM COMPARISON: Chest radiographs from 11/20/2022 TECHNIQUE: XR chest 2V Frontal and lateral views of the chest. CLINICAL INDICATION:Male, 72 years old with history of Difficulty breathing ; FINDINGS: Lungs/Pleura: There is no evidence of pleural effusion, focal consolidation, or pneumothorax. Pulmonary vascularity: Unremarkable. Heart/mediastinum: Cardiomediastinal silhouette is unremarkable. Musculoskeletal: Degenerative changes of the shoulder joints. IMPRESSION: No acute cardiopulmonary disease/process.
[2022-12-07 09:35] VITALS: RESP 16
--- NOTE | 2022-12-07 09:42 | US ---
EXAMINATION TYPE: US venous doppler duplex LE RT DATE OF EXAM: 12/07/2022 8:30 AM COMPARISON: US CLINICAL INDICATION: Male, 72 years old with history of DVT; Pt states right leg pain SIDE PERFORMED: Right TECHNIQUE: The lower extremity deep venous system is examined utilizing real time linear array sonog nathan with graded compression, doppler sonography and color-flow sonography. VESSELS IMAGED: Common Femoral Vein Deep Femoral Vein Greater Saphenous Vein * Femoral Vein Popliteal Vein Small Saphenous Vein * Proximal Calf Veins (* superficial vessels) Right Leg: Negative for DVT IMPRESSION: 1. Right lower extremity ultrasound negative for deep venous thrombosis.
[2022-12-07 10:10] VITALS: BP 120/78; PULSE 74; TEMP 97.7
== END 2022-12-07 10:10 | disposition home or self-care (01) ==
LOC: EC 06:47
DX: J06.9 Acute upper respiratory infection, unspecified (principal); M79.606 Pain in leg, unspecified; Z87.891 Personal history of nicotine dependence
CPT/HCPCS: 71046; 99284

== ENCOUNTER → 2023-03-06 | Outpatient (CLI) | payer MEDICARE ==
[2023-03-06 10:04] LABS: African American GFR (CKD) 55 (>60 ml/min/1.73 sqM); Blood Urea Nitrogen 19 mg/dL (9-20); Non-African American GFR(CKD) 48 (>60 ml/min/1.73 sqM)
--- NOTE | 2023-03-06 12:14 | CT ---
EXAMINATION TYPE: CT angio chest DATE OF EXAM: 03/06/2023 COMPARISON: 11/21/2022 HISTORY: 72-year-old male I26.99, history of pulmonary embolism TECHNIQUE: Contiguous axial scanning of the chest performed with IV Contrast, patient injected with 8 0 mL of Isovue 370. Coronal/sagittal MIP reconstructions performed. CT DLP: 371.70 mGycm Automated exposure control for dose reduction was used. FINDINGS: The heart is normal size without pericardial effusion. No flattening of the interventricular septum. LAD coronary artery calcifications. Aorta normal caliber with conventional branching anatomy. Satisfactory opacification of the pulmonary arterial system. The previous bilateral lobar, segmental, and more distal arterial branch clots have cleared in the in terval. No thoracic lymphadenopathy by CT size criteria. Diffuse bronchial wall thickening. Some strandy areas of scarring or atelectasis. The mild basilar barbour bpleural groundglass and mild interstitial change is noted, and may be slightly increased from 11/22/19 23. Faint 6 mm ground glass nodule posterior left base is similar. A 5.0 cm cystic lesion in left retroperitoneum adjacent to the adrenal gland are previously larger 5. 6 cm. Decreasing size compatible with a benign etiology. Bones: Extensive DISH throughout the thoracic spine. IMPRESSION: 1. INTERVAL CLEARANCE OF THE EXTENSIVE BILATERAL PE's. 2. DIFFUSE BRONCHIAL WALL THICKENING MAY REFLECT BRONCHITIS OR CHRONIC ASTHMA. 3. IN ADDITION, THERE IS SOME BASILAR SUBPLEURAL GROUNDGLASS WHICH MAY BE SLIGHTLY INCREASED ALONG WI TH RETICULAR CHANGE. FINDINGS ARE NONSPECIFIC AND MAY BE DUE TO SOME VOLUME LOSS AND ATELECTASIS. NSI P AND DIP ARE ALSO CONSIDERATIONS. . 4. A 6 MM POSTERIOR LEFT BASILAR PULMONARY NODULE IS STABLE FOR 3 MONTHS. RECOMMEND ADDITIONAL 9 EVELIO H FOLLOW-UP TO REASSESS.
== END | disposition home or self-care (01) ==
LOC: RADCTMAIN 09:29
PROVIDERS: ATTEND Internal Medicine Hematology & Oncology
DX: I26.99 Other pulmonary embolism without acute cor pulmonale (principal); R91.1 Solitary pulmonary nodule; J98.09 Other diseases of bronchus, not elsewhere classified
CPT/HCPCS: 82565; 84520; 71275; 36415; Q9967